=== PATIENT | male | born 1960 | race Two or more races ===

== ENCOUNTER 2020-10-27 11:34 | Emergency (ER) | payer OTHER ==
[~2020-10-27] VITALS: Ht 180.3 cm; Wt 74.8 kg
[2020-10-27] MEDS ORDERED: GLIMEPIRIDE4 M1 PO (11:44)
[2020-10-27] MEDS ORDERED: LOSARTAN POTASS50 MG PO (11:44)
[2020-10-27] MEDS ORDERED: FORTAMET1000 MG (11:44)
[2020-10-27] MEDS ORDERED: LIPITOR20 MG (11:45)
[2020-10-27] MEDS ORDERED: NORFLEX100MG PO (15:30)
[2020-10-27] MEDS ORDERED: CIPRO500 MG PO (15:49)
== END 2020-10-27 16:06 | disposition home or self-care (01) ==
LOC: ER 11:34
DX: R30.0 Dysuria (principal); M54.5 Low back pain